=== PATIENT | female | born 1975 | race Caucasian/White ===

== ENCOUNTER 2016-11-26 12:50 | Emergency (ER) | payer OTHER ==
[~2016-11-26] VITALS: Ht 172.7 cm; Wt 77.1 kg
--- NOTE | 2016-11-26 13:26 | ER.PDOC ---
General Chief Complaint: Abdomen Pain Stated Complaint: POSS DIVERTICULITIS Time seen by MD: 13:15 Source: patient Exam Limitations: no limitations History of Present Illness Initial Comments Pt who started yesterday with LLQ abdominal pain, H/O diverticulitis with bowel perforation two years ago Timing/Duration: 24 hours Severity/Quality: severe, cramping, sharpness Radiation: LLQ Associated Symptoms: denies symptoms Allergies: Coded Allergies: No Known Allergies (Unverified , 11/26/16) Vital Signs First Vital Signs Date Time Temp Pulse Resp B/P (MAP) Pulse Ox O2 Delivery O2 Flow Rate FiO2 11/26/16 13:00 99.7 105 18 98 11/26/16 13:03 151/82 (105) Last Vital Signs Date Time Temp Pulse Resp B/P (MAP) Pulse Ox O2 Delivery O2 Flow Rate FiO2 11/26/16 13:03 99.7 105 18 151/82 (105) 98 Past Medical History Medical History: no pertinent history Surgical History: colectomy LMP (females 10-50): 3 weeks Social History Smoking: non-smoker Alcohol Use: occassionally Drug Use: none Constitutional: see HPI EENTM: see HPI Respiratory: see HPI Cardiovascular: see HPI Gastrointestinal: see HPI Genitourinary: see HPI Musculoskeletal: see HPI Skin: see HPI Psychiatric/Neurological: see HPI Endocrine: see HPI Hematologic/Lymphatic: see HPI Physical Exam General Appearance: No Apparent Distress, WD/WN HEENT: PERRL/EOMI, Normal ENT Inspection, TMs Normal, Pharynx Normal Neck: Non-Tender, Full Range of Motion, Supple, Normal Inspection Respiratory: chest non-tender, lungs clear, normal breath sounds, no respiratory distress, no accessory muscle use Cardiovascular: Normal Peripheral Pulses, Regular Rate, Rhythm, No Edema, No Gallop, No JVD, No Murmur Gastrointestinal: Normal Bowel Sounds, Tenderness (LLQ) Back: Normal Inspection, No CVA Tenderness, No Vertebral Tenderness Extremities: Normal Range of Motion, Non-Tender, Normal Inspection, No Pedal Edema, No Calf Tenderness, Normal Capillary Refill, Pelvis Stable 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
[2016-11-26] MEDS ORDERED: TORADOL IV STA (13:28)
[2016-11-26 13:30] LABS: BASOPHIL % 0.2 % (0.0-0.2); EOSINOPHIL % 0.2 % (0.0-5.0); HEMATOCRIT 47.4 % (36.0-46.0); HEMOGLOBIN 15.2 g/dL (12.0-15.0); LYMPHOCYTES # 1.4 10^3/uL (1.0-4.8); LYMPHOCYTES % 15.8 % (24.0-44.0); MEAN CELL HGB 28.4 pg (26-34); MEAN CELL HGB CONCENTRATION 32.1 g/dL (33-37); MEAN CORP VOLUME 88.4 fL (78-100); MEAN PLATELET VOLUME 10.4 fL (7.8-11.0); MONOCYTES # 0.6 10^3/uL (0.3-0.8); MONOCYTES % 7.3 % (5.0-12.0); NEUTROPHIL # 6.7 10^3/uL (1.8-7.7); NEUTROPHILS % 76.5 % (41.0-85.0); PLATELET COUNT 288 10^3/uL (150-400); WHITE BLOOD CELL 8.8 10^3/uL (4.5-11.0)
[2016-11-26] MEDS ORDERED: NS 1000ML 1,000 ML IV ONE (13:30)
[2016-11-26] MEDS ORDERED: NS 1000ML 1,000 ML ONE (13:35)
[2016-11-26] MEDS ORDERED: TORADOL ONE (13:35)
[2016-11-26 13:49] LABS: CALCIUM 9.2 mg/dL (8.4-10.5); CARBON DIOXIDE 26.9 mmol/L (20.0-32)
[2016-11-26] MEDS ORDERED: PHENERGAN IV STA (14:29)
[2016-11-26] MEDS ORDERED: DEMEROL IV STA (14:29)
[2016-11-26] MEDS ORDERED: NS 100ML 100 ML IV ONE (14:43)
[2016-11-26] MEDS ORDERED: DEMEROL ONE (14:43)
[2016-11-26] MEDS ORDERED: PHENERGAN ONE (14:43)
--- NOTE | 2016-11-26 14:45 | NUR ---
CT PT BACK FROM CT
--- NOTE | 2016-11-26 15:37 | DIREP ---
PROCEDURE:CT ABD/PELVIS WITH CONTRAST TECHNIQUE:No oral contrast was given. Following the intravenous administration of contrast material, axial cuts were obtained from the dome of the diaphragm to the ischial tuberosities. The images were viewed at lung and soft tissue settings. Sagittal and coronal reconstructions are provided. COMPARISON:[facility], CT, CT ABD/PELVIS W/ CONTRAST, 11/10/2016, 02:56 PM. INDICATIONS:LLQ abdominal pain FINDINGS: LOWER CHEST:No infiltrate or pleural effusion. LIVER:Normal. BILIARY:Partially contracted gallbladder. No gallstones or biliary duct dilatation. PANCREAS:Normal. SPLEEN:Normal. URINARY TRACT:Normal nephrograms without obstruction or perinephric inflammation. Unremarkable urinary bladder. ADRENALS:Normal. AORTA/VASCULAR:Normal. RETROPERITONEUM:Normal. BOWEL/MESENTERY:Small hiatal hernia. Distal colonic diverticula. Sigmoid colectomy. No bowel obstruction, inflammatory stranding, free fluid or air. Normal air-filled appendix. ABDOMINAL WALL:Normal. PELVIS:Bilateral ovarian follicular cysts. BONES:Normal. OTHER:Normal. CONCLUSION: 1. Colonic diverticulosis without acute diverticulitis. 2. Sigmoid colectomy. 3. Bilateral ovarian follicular cysts. 4. No acute process seen. Dictated by: Vannesa Rivera MD on 11/26/2016 at 03:28 PM
[2016-11-26 16:14] VITALS: BP 132/72
== END 2016-11-26 16:11 | disposition home or self-care (01) ==
LOC: ER 12:50
DX: K57.90 Diverticulosis of intestine, part unspecified, without perforation or abscess without bleeding (principal)
CPT/HCPCS: 36415; 74177; 80053; 82150; 83690; 84703; 85025; 85610; 85730; 96361; 96374; 96375; 99285; J1885; J2175; J2550; J7030; Q9967

== ENCOUNTER 2017-01-04 14:30 | Emergency (ER) | payer OTHER ==
[~2017-01-04] VITALS: Ht 172.7 cm; Wt 77.1 kg
--- NOTE | 2017-01-04 14:45 | NUR ---
ARRIVAL PATIENT ARRIVED TO [facility]ULAT[facility], UA COLLECTED AND SENT TO LAB, C/O OF ABD PAIN FOR THE PAST 5 DAYS, DOES HAVE A HISTORY OF DIVERTICULOSIS WITH A COLON RESECTION, HERE FOR FURTHER EVAL.
[2017-01-04 14:56] LABS: APPEARANCE,URINE CLEAR (CLEAR); BILIRUBIN,URINE NEGATIVE (NEGATIVE); UA COLOR YELLOW (YELLOW); UROBILINOGEN,URINE NORMAL (NEGATIVE)
[2017-01-04] MEDS ORDERED: ROCEPHIN 1,000 MG in NS 100ML 100 ML IV STA (14:59)
[2017-01-04] MEDS ORDERED: NS 1000ML 1,000 ML IV ONE (15:00)
--- NOTE | 2017-01-04 15:00 | ER.PDOC ---
General Chief Complaint: Abdomen Pain Stated Complaint: ABD PAIN Time seen by MD: 14:56 Source: patient Exam Limitations: no limitations History of Present Illness Initial Comments hx of diverticulitis states feels like that Timing/Duration: 24 hours Severity/Quality: moderate Radiation: LLQ Associated Symptoms: nausea/vomiting Exacerbated by: nothing Relieved By: nothing Allergies: Coded Allergies: No Known Allergies (Unverified , 11/26/16) Home Meds No Active Prescriptions or Reported Meds Vital Signs First Vital Signs Date Time Temp Pulse Resp B/P (MAP) Pulse Ox O2 Delivery O2 Flow Rate FiO2 01/04/17 14:40 81 20 97 01/04/17 14:42 98.3 163/88 (113) Last Vital Signs Date Time Temp Pulse Resp B/P (MAP) Pulse Ox O2 Delivery O2 Flow Rate FiO2 01/04/17 14:42 98.3 81 20 163/88 (113) 97 Past Medical History Surgical History: colon LMP (females 10-50): 12/12/16 Family History Significant Family History: no pertinent family hx Social History Smoking: non-smoker Alcohol Use: occassionally Drug Use: none Constitutional: denies fever EENTM: denies eye pain Respiratory: denies cough Gastrointestinal: abdominal pain Musculoskeletal: denies back pain Skin: denies rash All Other Systems: Reviewed and Negative Physical Exam General Appearance: WD/WN, Anxious HEENT: PERRL/EOMI, Normal ENT Inspection, TMs Normal, Pharynx Normal Neck: Non-Tender, Full Range of Motion, Supple, Normal Inspection Respiratory: chest non-tender, lungs clear, normal breath sounds, no respiratory distress, no accessory muscle use Cardiovascular: Normal Peripheral Pulses, Regular Rate, Rhythm, No Edema, No Gallop, No JVD, No Murmur Gastrointestinal: Tenderness Back: Normal Inspection, No CVA Tenderness, No Vertebral Tenderness Extremities: Normal Range of Motion, Non-Tender, Normal Inspection, No Pedal Edema, No Calf Tenderness, Normal Capillary Refill, Pelvis Stable 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, No Motor/Sensory Deficits, Alert, Normal Mood/Affect, Oriented x 3 Skin: Normal Color, Warm/Dry Lymphatic: No Adenopathy Progress Progress labs neg cipro bid tylenol #3 Course Blood Pressure Systolic: 163 Blood Pressure Diastolic: 88 Blood Pressure Mean: 113 Departure Time of Disposition: 16:36 Disposition: 01 HOME, SELF-CARE Impression: Primary Impression: Abdominal pain Additional Impression: Diverticulitis Condition: Stable Referrals: PCP,UNKNOWN (PCP) PRIMARY CARE PROVIDER Additional Instructions: cipro bid tylenol #3 Scripts No Active Prescriptions or Reported Meds Problem Qualifiers NICOLE DALE MD Jan 04, 2017 15:00
[2017-01-04 15:05] LABS: BASOPHIL % 0.4 % (0.0-0.2); EOSINOPHIL # 0.1 10^3/uL (0.0-0.2); EOSINOPHIL % 1.6 % (0.0-5.0); HEMATOCRIT 42.4 % (36.0-46.0); HEMOGLOBIN 14.1 g/dL (12.0-15.0); LYMPHOCYTES # 2.1 10^3/uL (1.0-4.8); LYMPHOCYTES % 26.9 % (24.0-44.0); MEAN CELL HGB CONCENTRATION 33.3 g/dL (33-37); MEAN CORP VOLUME 87.1 fL (78-100); MEAN PLATELET VOLUME 10.3 fL (7.8-11.0); MONOCYTES # 0.8 10^3/uL (0.3-0.8); MONOCYTES % 9.6 % (5.0-12.0); NEUTROPHIL # 4.9 10^3/uL (1.8-7.7); NEUTROPHILS % 61.4 % (41.0-85.0); RED CELL DISTRIBUTION WIDTH 13.9 % (11.5-14.5)
[2017-01-04] MEDS ORDERED: NS 1000ML 1,000 ML ONE (15:11)
[2017-01-04] MEDS ORDERED: ROCEPHIN ONE (15:12)
[2017-01-04 15:47] LABS: CALCIUM 8.7 mg/dL (8.4-10.5)
[2017-01-04 16:45] VITALS: BP 163/88
== END 2017-01-04 16:45 | disposition home or self-care (01) ==
LOC: ER 14:30
DX: K57.92 Diverticulitis of intestine, part unspecified, without perforation or abscess without bleeding (principal); R11.2 Nausea with vomiting, unspecified; Z90.49 Acquired absence of other specified parts of digestive tract
CPT/HCPCS: 36415; 80053; 81002; 81025; 82150; 83690; 85025; 85610; 85730; 96365; 99284; J0696; J7030